=== PATIENT | female | born 1995 | race Caucasian/White ===

== ENCOUNTER 2018-05-26 22:44 | Emergency (ER) | payer MEDICAID ==
[~2018-05-26 22:44] MED LIST: BACTRIM DS 8001 TAB PO; NO HOME MEDICATIONS; NORCO 325 MG-51 TAB PO
[2018-05-26 22:48] VITALS: TEMP 98
[2018-05-26 23:43] LABS: COLLECTION METHOD CLEAN CATCH
[2018-05-26 23:46] LABS: BASO % 0.2 % (0.0-2.0); EOS % 0.1 % (0-4.0); GRAN # 14.4 (1.4-6.5); HEMATOCRIT 43.1 % (37.0-47.0); HEMOGLOBIN 14.9 g/dl (12.5-16.0); LYMPH # 1.7 (1.2-3.4); LYMPH % 9.9 % (20.0-51.0); MEAN CELL VOLUME 91 fl (80.0-100.0); MEAN CORPUSCULAR HEMOGLOBIN 31 pg (27.0-31.0); MEAN CORPUSCULAR HGB CONC 35 g/dl (33.0-37.0); MONO # 0.8 (0.1-0.6); MONO % 4.4 % (1.7-9.3); PLATELET COUNT 212 K/mm3 (130-400); RED BLOOD COUNT 4.75 M/mm3 (4.10-5.30); REDCELL DISTRIBUTION WIDTH-CV 12.4 % (11.5-14.5)
[2018-05-26 23:55] LABS: ALANINE AMINOTRANSFERASE 20 U/L (9-52); ALBUMIN 4.4 gm/dL (3.5-5.0); ALKALINE PHOSPHATASE 61 U/L (50-136); ANION GAP 11 mmol/L (7-16); AST,SGOT 37 U/L (15-37); BILIRUBIN,TOTAL 1.3 mg/dL (0.0-1.0); BLOOD UREA NITROGEN 8 mg/dL (7-17); CARBON DIOXIDE 23 mmol/L (22-30); CHLORIDE 102 mmol/L (98-107); CREATININE, serum 0.53 mg/dL (0.52-1.25); GLUCOSE 85 mg/dL (74-106); POTASSIUM 3.7 mmol/L (3.4-5.0); SODIUM 136 mmol/L (137-145); TOTAL PROTEIN 7.7 gm/dL (6.4-8.2)
[2018-05-26 23:59] LABS: MUCOUS Present /lpf; PH 5 (5-8); URINE APPEARANCE Hazy; URINE BACTERIA Rare /hpf; URINE BILIRUBIN Negative (NEGATIVE); URINE BLOOD Negative (NEGATIVE); URINE COLOR Yellow; URINE GLUCOSE Negative (NEGATIVE); URINE KETONE 2+ (NEGATIVE); URINE LEUKOCYTE ESTERASE Negative (NEGATIVE); URINE NITRATE Negative (NEGATIVE); URINE PROTEIN(semi-quant) Negative (NEGATIVE); URINE UROBILINOGEN Negative (NEGATIVE)
[2018-05-27] LABS: C-REACTIVE PROTEIN < 0.5 mg/dL (0.0-0.9)
[2018-05-27] MEDS ORDERED: MACROBID 1100 MG/CAP PO (01:09)
[2018-05-27 01:46] VITALS: BP 102/55; PULSE 94
== END 2018-05-27 01:45 | disposition home or self-care (01) ==
LOC: COL.ER 22:44
PROVIDERS: Physician Assistant
DX: O21.9 Vomiting of pregnancy, unspecified (principal); O23.91 Unspecified genitourinary tract infection in pregnancy, first trimester; R82.71 Bacteriuria; Z3A.15 15 weeks gestation of pregnancy
CPT/HCPCS: J2405; J2765; J7030

== ENCOUNTER 2018-11-09 17:55 | Inpatient (IN) | payer MEDICAID ==
[~2018-11-09] VITALS: Wt 68.6 kg
[~2018-11-09 17:55] MED LIST changes: +MACROBID 1100 MG/CAP PO
--- NOTE | 2018-11-09 18:20 | NUR ---
Here with girlfriend for labor check. Lower abd and back discomfort intermittent today. States membranes swept in office 11/08 late decel with firts uc. Repos to left. Second late with next ctx. juice given. Additional latesx2. Water pitcher provided. Variabilty average Accels present.
[2018-11-09 18:35] VITALS: BP 119/57; PULSE 102; TEMP 98.9
[2018-11-09 18:38] VITALS: BP 119/57; PULSE 102; TEMP 98.9
[2018-11-09] MEDS ORDERED: PRENATAL MVI (18:44)
[2018-11-09 19:10] VITALS: BP 113/53; PULSE 85
--- NOTE | 2018-11-09 23:10 | NUR ---
O2 MASK LEFT SIDE.SPOUSE TO COME NOW AFTER WORK.EVAL PER DR LOVE.
[2018-11-09 23:24] LABS: BASO % 0.1 % (0.0-2.0); EOS % 0.1 % (0-4.0); GRAN # 12.2 (1.4-6.5); GRAN % 81.9 % (42.2-75.2); HEMOGLOBIN 11.1 g/dl (12.5-16.0); LYMPH # 1.7 (1.2-3.4); LYMPH % 11.1 % (20.0-51.0); MEAN CELL VOLUME 87 fl (80.0-100.0); MEAN CORPUSCULAR HEMOGLOBIN 29 pg (27.0-31.0); MEAN CORPUSCULAR HGB CONC 33 g/dl (33.0-37.0); MEAN PLATELET VOLUME 11.8 fl (7.4-10.4); MONO # 0.9 (0.1-0.6); MONO % 6.3 % (1.7-9.3); PLATELET COUNT 158 K/mm3 (130-400); RED BLOOD COUNT 3.87 M/mm3 (4.10-5.30); REDCELL DISTRIBUTION WIDTH-CV 13.9 % (11.5-14.5)
[2018-11-09 23:26] LABS: HEMATOCRIT 33.6 % (37.0-47.0)
[2018-11-09 23:30] VITALS: BP 129/73; BP 137/78; PULSE 100; PULSE 93; TEMP 99.8
[2018-11-09 23:45] VITALS: BP 137/78; PULSE 93; TEMP 99.8
--- NOTE | 2018-11-09 23:45 | NUR ---
DR LOVE ON UNIT. AWAITING PTS KATELIN TO DISCUSS C/S. PREPARATION MADE TO DELIVERY BY C/S- STAFF BEING PREPARED. MOTHERS ABD SCRUBBED. 0005 /-[address] LOVE[address] VISITS WITH PT STEPHANIE THOMASON RE C/S DELIVERY. 0023 AMBULATES TO C/S ROOM WITH GIRLFRIEN. COREYALAINA DOES NOT FEEL UP TO BEING IN SURGERY.
[2018-11-10] VITALS (19 sets, daily range): BP systolic 89–134; BP diastolic 51–79; PULSE 76–114; TEMP 97.8–99.4
--- NOTE | 2018-11-10 05:51 | NUR ---
RESTING WITH BABY ON CHEST. MOTHER AND GIRLFRIEND HERE. FOB HOME TO SLEEP
--- NOTE | 2018-11-10 08:59 | NUR ---
Initial visit; Patient thanked Packing Clerk for offering congratulations and God's blessings for the of her son. Packing Clerk thanked Mom for choosing [facility].
--- NOTE | 2018-11-10 09:15 | NUR ---
Patient assisted to edge of bed and dangles feet. Patient ambulates to bathroom with standby assist. Johnston catheter removed, pericare done, new gown/undies/pad on. Patient ambulates to sink to brush teeth. Patient states she is having really bad should cramps/pains in both shoulders, informed patient that this is most likely due to gas that is trapped and walking will help relieve this pain, patient also given medication. See emar. Plan of care discussed.
--- NOTE | 2018-11-10 11:30 | NUR ---
in Nursery and Dr. Clark assessing. Physician ordering glucose check due to jitteryness. Cyndee RN checks sugar and WNL. This RN checking vital signs and infants respirations 70-[address] Clark notified and 67 breaths per minute per physician. Orders to have go skin to skin/breast feed and recheck in 30 minutes with a saturation check. to mom for skin to skin/breast feeding. 1230: to nursery and saturation check on hand- 99% and right foot- 100% held and calms down. Respirations-50breaths/min Cyndee GRIFFIN notified.
[2018-11-11 01:40] VITALS: BP 94/52; PULSE 105; TEMP 98.5
[2018-11-11] MEDS ORDERED: PERCOCET 325 MG1 TA2 PO (08:40)
[2018-11-11] MEDS ORDERED: MOTRIN 800800 MG/TAB PO (08:40)
[2018-11-11 08:45] VITALS: BP 109/63; PULSE 94; TEMP 98
[2018-11-11 09:25] LABS: BASO % 0.1 % (0.0-2.0); EOS # 0.1 (0.0-0.7); EOS % 0.5 % (0-4.0); GRAN % 81.6 % (42.2-75.2); LYMPH % 11.7 % (20.0-51.0); MEAN CELL VOLUME 88 fl (80.0-100.0); MEAN CORPUSCULAR HGB CONC 33 g/dl (33.0-37.0); MEAN PLATELET VOLUME 11.5 fl (7.4-10.4); MONO % 5.6 % (1.7-9.3); PLATELET COUNT 127 K/mm3 (130-400); RED BLOOD COUNT 3.04 M/mm3 (4.10-5.30); REDCELL DISTRIBUTION WIDTH-CV 14.6 % (11.5-14.5)
[2018-11-11 09:30] LABS: HEMOGLOBIN 8.8 g/dl (12.5-16.0); MEAN CORPUSCULAR HEMOGLOBIN 29 pg (27.0-31.0)
[2018-11-11 09:31] LABS: HEMATOCRIT 26.8 % (37.0-47.0)
[2018-11-11 16:54] VITALS: BP 111/83; PULSE 102; TEMP 97.7
[2018-11-11 22:50] VITALS: BP 117/63; PULSE 99; TEMP 97.9
[2018-11-12 09:00] VITALS: BP 119/73; PULSE 86; TEMP 97.8
--- NOTE | 2018-11-12 14:30 | NUR ---
MOTHER BROUGHT TO NURSERY SO SHE COULD WALK AROUND THE GARDEN AREA AT THIS TIME.
[2018-11-12 16:20] VITALS: BP 120/53; PULSE 100; TEMP 98.5
[2018-11-12 21:00] VITALS: BP 116/76; PULSE 96; TEMP 98.1
[2018-11-13 08:01] VITALS: BP 115/77; PULSE 77; TEMP 97.7
[2018-11-13 11:14] VITALS: BP 110/62; PULSE 112
== END 2018-11-13 15:35 | disposition home or self-care (01) | DRG 788 ==
LOC: LDRO 17:55 → LDR 18:20 → OB 21:51 → LDRO 21:51 → OB 11-10 02:15
PROVIDERS: Obstetrics & Gynecology; ADMIT Obstetrics & Gynecology
PROC: 10D00Z1 Extraction of Products of Conception, Low, Open Approach (ICD-10-PCS; principal; 2018-11-09)
DX: O76 Abnormality in fetal heart rate and rhythm complicating labor and delivery (principal); Z3A.39 39 weeks gestation of pregnancy; Z37.0 Single live birth; O99.824 Streptococcus B carrier state complicating childbirth; Z86.14 Personal history of Methicillin resistant Staphylococcus aureus infection
CPT/HCPCS: J0690; J1885; J2175; J2370; J2405; J2540; J2590; J3010; J7120